=== PATIENT | female | born 1995 | race Caucasian/White ===

== ENCOUNTER 2023-06-05 08:35 | Outpatient (AMB) | payer SELFPAY ==
--- OUTSIDE RECORDS SUMMARY | 2023-06-05 08:36 | XMS_ITS | Continuity of Care Document ---
Author Name Unknown Organization [facility] Address [address] [place] [phone]- Care Team Providers Care Oyster Floater Name Role Phone Jordyn Guillory NP Primary Care Physician Encounter [facility] [place] Date(s): 06/19/21 - 07/19/21 [facility] [address] [place] [id number] Allergies, Adverse Reactions, Alerts Substance Reaction Severity Status NKA Active Medications aspirin 81 mg oral delayed release tablet 81 mg, 1, tablet, By Mouth, Daily, # 30 tablet, Refills 0, Maintenance, 07/19/21 12:52:00 EST, Partial fill upon patient request if the prescription is for a schedule II opioid drug. Start Date: 07/19/21 Status: Ordered One Touch Delica Lancets See Instructions, # 1 pack/packet, Refills 5, Tot. Refills 5, Maintenance, 1 packet = 100 lancets.33 gauge. To test BS 4 x day, 05/18/21 10:39:00 EDT, Compound Start Date: 05/18/21 Status: Ordered OneTouch Verio Glucose Meter See Instructions, # 1 pack/packet, Maintenance, Gestational diabetes to test BS 4 x day, 05/18/21 10:39:00 EDT, Compound Start Date: 05/18/21 Status: Ordered OneTouch Verio Test Strips See Instructions, # 1 pack/packet, Refills 5, Tot. Refills 5, Maintenance, To test BS 4 x day. 1 packet = 100 test strips, 05/18/21 10:39:00 EDT, Compound Start Date: 05/18/21 Status: Ordered AD oral tablet 1 tablet, By Mouth, Daily, # 30 tablet, 0 Refills, Maintenance, 07/19/21 12:51:00 EST, Tablet, Partial fill upon patient request if the prescription is for a schedule II opioid drug. Start Date: 07/19/21 Status: Ordered Problem List Condition Effective Dates Status Health Status Inform ant Gestational diabetes mellitu s, class A>1<(Confirmed) 1 07/19/21 Active Gestational hypertension(Confirmed) 2 07/19/21 Active Severe obesity(Confirmed) Active 1Problem added by Discern Expert 2Problem added by Discern Expert
--- OUTSIDE RECORDS SUMMARY | 2023-06-05 08:36 | XMS_ITS | Continuity of Care Document ---
Author Name Unknown Organization [facility] Address [address] [place] [address]- Care Team Providers Care Fish Technologist Name Role Phone Jordyn Guillory NP Primary Care Physician En[place] [facility] [place] Date(s): 02/22/22 - 03/24/22 [facility] Adult [address] [place] [address]- Allergies, Adverse Reactions, Alerts No Known Allergies Immunizations Given and Recorded Vaccine Date Status Refusal Reason influenza virus vaccine, inactivated 1 07/21/21 Gi romana 1Early/Late Reason: Early/Late Reason: Other : pt now verbally consenting to vaccination Medications acetaminophen 325 mg oral tablet 650 mg, By Mouth, Every 4 hours, PRN, (1-3), may give 325mg per patient preference and re-dose [id number] within 4 hours, if needed. Patient should only receive a total of 650mg of Acetaminophen every 4 hours., Refills 0, Maintenance, Pain , Mild, 0... Start Date: 07/22/21 Status: Ordered aspirin 81 mg oral delayed release tablet 81 mg, 1, tablet, By Mouth, Daily, # 30 tablet, Refills 0, Maintenance, 07/19/21 12:52:00 EST, Partial fill upon patient request if the prescription is for a schedule II opioid drug. Start Date: 07/19/21 Status: Ordered Docusate Sodium Capsule 100 mg, 1, capsule, By Mouth, 2 times a day, PRN, Refills 0, Maintenance, Constipation, 07/22/21 10:22:00 EST, Partial fill upon patient request if the prescription is for a schedule II opioid drug. Start Date: 07/22/21 Status: Ordered ibuprofen 800 mg oral tablet 800 mg, 1, tablet, By Mouth, Every 8 hours, PRN, (4-6), may give 400mg per patient preference and re-dose with 400mg within 8 hours if needed. Patient should only receive a total of 800mg of Ibuprofen every 8 hours., Refills 0, Maintenance, Pain , M... Start Date: 07/22/21 Status: Ordered AD oral tablet 1 tablet, By Mouth, Daily, # 30 tablet, 0 Refills, Maintenance, 07/19/21 12:51:00 EST, Tablet, Partial fill upon patient request if the prescription is for a schedule II opioid drug. Start Date: 07/19/21 Status: Ordered Problem List Condition Effective Dates Status Health Status Inform ant Severe obesity(Confirmed) Active Care Team Personnel Name: Kahlil NICHOLAS, Jordyn Steve Address: [address] [place] [address] [place] [address]-
--- OUTSIDE RECORDS SUMMARY | 2023-06-05 08:36 | XMS_ITS | Continuity of Care Document ---
Author Name Unknown Organization [facility] Address [address] [place] [address]- Care Team Providers Care Pricing Associate Name Role Phone Jordyn Guillory NP Primary Care Physician Encounter [facility] [place] Date(s): 12/13/20 - 01/12/[address] [address]- Attending Physician: AdmtrJoanna Admitting Physician: Admtr, ArJose A Referring Physician: Admtr, Ar8 Allergies, Adverse Reactions, Alerts Substance Reaction Severity Status NKA Active
--- OUTSIDE RECORDS SUMMARY | 2023-06-05 08:36 | XMS_ITS | Continuity of Care Document ---
Author Name Unknown Organization [facility] Address [address] [place] [address]- Care Team Providers Care Fiber Analyst Name Role Phone Kahlil NICHOLAS, Jordyn Steve Primary Care Physician Encounter [facility] Date(s): 07/03/21 - 08/02/21 [facility] [address] [place] [id number] Allergies, Adverse Reactions, Alerts No Known Allergies Immunizations Given and Recorded Vaccine Date Status Refusal Reason influenza virus vaccine, inactivated 1 07/21/21 Gi romana 1Early/Late Reason: Early/Late Reason: Other : pt now verbally consenting to vaccination Medications acetaminophen 325 mg oral tablet 650 mg, By Mouth, Every 4 hours, PRN, (1-3), may give 325mg per patient preference and re-dose [id number] within 4 hours, if needed. Patient should [...]
--- OUTSIDE RECORDS SUMMARY | 2023-06-05 08:36 | XMS_ITS | Continuity of Care Document ---
Author Name Unknown Organization [facility] Address [address] [place] [address]- Care Team Providers Care Engraver Copperplate Name Role Phone Kahlil NICHOLAS, Jordyn Steve Primary Care Physician En[place] [facility] [place] Date(s): 06/13/21 - 07/13/21 [facility] [address] [place] [id number] Allergies, Adverse Reactions, Alerts Substance Reaction Severity Status NKA Active Medications One Touch Delica Lancets See Instructions, # [...]
--- OUTSIDE RECORDS SUMMARY | 2023-06-05 08:36 | XMS_ITS | Continuity of Care Document ---
Author Name Unknown Organization [facility] Address [address] [place] [address]- Care Team Providers Care Bilingual Loan Processor Name Role Phone Kahlil NICHOLSA, Jordyn Steve Primary Care Physician Encounter [facility] Date(s): 11/22/20 - 12/22/[address] [address]- Allergies, Adverse Reactions, Alerts Substance Reaction Severity Status NKA Active
--- OUTSIDE RECORDS SUMMARY | 2023-06-05 08:36 | XMS_ITS | Continuity of Care Document ---
Author Name Unknown Organization [facility] Address [address] [place] [address]- Care Team Providers Care Arts Administrator Or Manager Name Role Phone Kahlil NICHOLAS, Jordyn Steve Primary Care Physician Encounter [facility] Date(s): 07/19/21 - 07/22/[address] [address] Discharge Disposition: A-D/C Home Attending Physician: Anaya Lopez DO Admitting Physician: Anaya Lopez DO Referring Physician: Not on Staff, Referring MD Allergies, Adverse Reactions, Alerts Substance Reaction Severity Status NKA Active Immunizations Given and Recorded Vaccine Date Status Refusal Reason influenza virus vaccine, inactivated 1 07/21/21 Gi romana 1Early/Late Reason: Early/Late Reason: Other : pt now verbally consenting to vaccination Medications acetaminophen 325 mg oral tablet 650 mg, By Mouth, Every 4 hours, PRN, (1-3), may give 325mg per patient preference and re-dose [id number] within 4 hours, if needed. Patient should [...] Health Status Inform ant Severe obesity(Confirmed) Active Vital Signs Most recent to oldest [Reference Range]: 1 2 3 Height 164 cm (07/22/21 8:31 AM) 164 cm (07/22/21 12:02 AM) 164 cm (07/21/21 3:58 PM) Weight 110 kg (07/19/21 12:31 PM) Oxygen Saturation [94-100 %] 99 % (07/22/21 8:31 AM) 100 % (07/22/21 12:02 AM) 97 % (07/21/21 3:58 PM) Pulse Rate [55-90 bpm] 95 bpm *H* (07/22/21 8:31 AM) 77 bpm (07/22/21 12:02 AM) 99 bpm *H* (07/21/21 3:58 PM) Body Mass Index [18.5-24.99] 40.9 *>HHI* (07/19/21 12:31 PM) Blood Pressure [90-138/55-84 mm Hg] 130/66mm Hg (07/22/21 8:31 AM) 132/77mm Hg (07/22/21 12:02 AM) 125/63mm Hg (07/21/21 3:58 PM) Respiratory Rate [16-30 br/min] 18 br/min (07/22/21 8:31 AM) 18 br/min (07/22/21 12:02 AM) 18 br/min (07/21/21 3:58 PM) Temperature [96.8-100.4 DegF] 98.4 DegF (07/22/21 8:31 AM) 98.2 DegF (07/22/21 12:02 AM) 98.9 DegF (07/21/21 3:58 PM) Mode of Delivery (Oxygen) Room air (07/22/21 8:31 AM) Room air (07/22/21 12:02 AM) Room air (07/21/21 3:58 PM) Blood pressure sites Arm, right (07/22/21 8:31 AM) Arm, right (07/21/21 3:58 PM) Arm, right (07/21/21 8:11 AM) Temperature Route Oral (07/22/21 8:31 AM) Oral (07/22/21 12:02 AM) Oral (07/21/21 3:58 PM) Dry Weight 110 kg (07/19/21 12:31 PM)
--- OUTSIDE RECORDS SUMMARY | 2023-06-05 08:36 | XMS_ITS | Continuity of Care Document ---
Author Name Unknown Organization [facility] Address [address] [place] [address]- Care Team Providers Care Seat Builder Name Role Phone Kahlil NICHOLAS, Jordyn Steve Primary Care Physician [place] [facility] [place] Date(s): 11/22/20 - 01/12/[address] [address] Attending Physician: Raphael Acosta MD Admitting Physician: Raphael Acosta MD Referring Physician: Barrington NICHOLAS, Sharon Hawkins Allergies, Adverse Reactions, Alerts Substance Reaction Severity Status NKA Active
--- OUTSIDE RECORDS SUMMARY | 2023-06-05 08:36 | XMS_ITS | Continuity of Care Document ---
Author Name Unknown Organization [facility] Address [address] [place] [address]- Care Team Providers Care Burn Center Nurse Name Role Phone Kahlil NICHOLAS, Jordyn tSeve Primary Care Physician Encounter [facility] Date(s): 06/26/21 - 07/26/21 [facility] [address] [place] [id number] Allergies, Adverse Reactions, Alerts Substance Reaction Severity Status NKA Active Immunizations Given and Recorded Vaccine Date Status Refusal Reason influenza virus vaccine, inactivated 1 07/21/21 Gi romana 1Early/Late Reason: Early/Late Reason: Other : pt now verbally consenting to vaccination Medications acetaminophen 325 mg oral tablet 650 mg, By Mouth, Every 4 hours, PRN, (1-3), may give 325mg per patient preference and re-dose [id number] within 4 hours, if needed. Patient should [...]
--- OUTSIDE RECORDS SUMMARY | 2023-06-05 08:36 | XMS_ITS | Continuity of Care Document ---
Author Name Unknown Organization [facility] Address [address] [place] [address]- Care Team Providers Care Electrical Engineering Technologist Name Role Phone Kahlil NICHOLAS, Jordyn Steve Primary Care Physician Encounter [facility] Date(s): 07/17/21 - 08/16/21 [facility] [address] [place] [id number] Allergies, Adverse Reactions, Alerts No Known Allergies Immunizations Given and Recorded Vaccine Date Status Refusal Reason influenza virus vaccine, inactivated 1 07/21/21 Gi romana 1Early/Late Reason: Early/Late Reason: Other : pt now verbally consenting to vaccination Medications acetaminophen 325 mg oral tablet 650 mg, By Mouth, Every 4 hours, PRN, (1-3), may give 325mg per patient preference and re-dose [id number] within 4 hours, if needed. Patient should [...]
--- OUTSIDE RECORDS SUMMARY | 2023-06-05 08:36 | XMS_ITS | Continuity of Care Document ---
Author Name Unknown Organization [facility] Address [address] [place] [address]- Care Team Providers Care Asbestos Hazard Abatement Worker Name Role Phone Kahlil NICHOLAS, Jordyn Steve Primary Care Physician Encounter [facility] Date(s): 05/29/21 - 06/28/21 [facility] [address] [place] [address]- Attending Physician: Admtr, Ar8 Admitting Physician: Admtr, Ar8 Referring Physician: Admtr, Ar8 Allergies, Adverse Reactions, [...]
--- OUTSIDE RECORDS SUMMARY | 2023-06-05 08:36 | XMS_ITS | Continuity of Care Document ---
Author Name Unknown Organization [facility] lt Address [address] [place] [address]- Care Team Providers Care Mail Clerk Name Role Phone Kahlil NICHOLAS, Jordyn Steve Primary Care Physician Encounter [facility] Date(s): 09/02/20 - 09/09/20 [facility] [address] [place] [address]- Attending Physician: Jennifer Pierre NP Allergies, Adverse Reactions, Alerts Substance Reaction Severity Status NKA Active
--- OUTSIDE RECORDS SUMMARY | 2023-06-05 08:37 | XMS_ITS | Continuity of Care Document ---
Author Name Unknown Organization [facility] Address [address] [place] [address]- Care Team Providers Care Mural Artist Name Role Phone Kahlil NICHOLAS, Jordyn Steve Primary Care Physician Encounter [facility] Date(s): 09/02/20 - 10/02/20 [facility] [address] [place] [address]- Attending Physician: Admtr, Ar8 Admitting Physician: Admtr, Ar8 Referring Physician: Admtr, Ar8 Allergies, Adverse Reactions, Alerts Substance Reaction Severity Status NKA Active
--- OUTSIDE RECORDS SUMMARY | 2023-06-05 08:37 | XMS_ITS | Continuity of Care Document ---
Author Name Unknown Organization [facility] Address [address] [place] [address]- Care Team Providers Care Industrial Tractor Driver Name Role Phone Jordyn Guillory NP Primary Care Physician Encounter [facility] [place] Date(s): 02/23/22 - 03/25/22 [facility] [address] [place] [address]- Allergies, Adverse Reactions, Alerts No Known Allergies Immunizations Given and Recorded Vaccine Date Status Refusal Reason influenza virus vaccine, inactivated 1 07/21/21 Gi romana 1Early/Late Reason: Early/Late Reason: Other : pt now verbally consenting to vaccination Medications acetaminophen 325 mg oral tablet 650 mg, By Mouth, Every 4 hours, PRN, (1-3), may give 325mg per patient preference and re-dose [id number] within 4 hours, if needed. Patient should [...] Severe obesity(Confirmed) Active Care Team Personnel Name: Jordyn Guillory NP Address: [address] [place] [address] [place] [address]-
--- NOTE | 2023-06-05 09:02 | AM.OFFWIN_ITS ---
Intake Vital Signs 06/05/23 09:04 Height 5 ft 5 in Weight 93.44 kg BMI 34.3 BP 122/70 Blood Pressure Location Rt brachial Position Sitting Pulse 77 Pulse Source Pulse Oximeter Pulse Oximetry (%) 97 Oxygen Delivery Method Room Air Intake Visit Reasons: Ep, sore in mouth Intake Note: Patient here for blister on roof of mouth that she noticed yesterday and woke up this morning with a swollen top lip. Patient Tobacco Use Status: Former Tobacco user Allergies No Known Allergies Allergy (Verified 06/05/23 09:05) Do you need a note to return to daycare/school/sports/work: No HPI HPI Comments 2 History of Present Illness Details [address]14 28 year old female presents w/ sore on r brown of mouth that she noticed yesterday and has had progressively worsening lip swelling upper lip for the past few days. Reports painful roof of mouth. Denies recent dental work. PE- abscess to hard palate w/ evident purulence and swollen upper lip. Concerns for abscess vs dental infection w/ cellulitis. no signs of airway compromise. Plan- patient will go to the emergency department at [facility] via private vehicle. Spoke to Mitchell MENJIVAR for report will likely need CT with contrast to rule out abscess PFS Patient Tobacco Use Status: Former Tobacco user Review of Systems Const Details: Constitutional : No Weight loss, No Fever, No Chills, No Fatigue, No Malaise ENT/Mouth : No sore throat, No Rhinorrhea Eyes: No Eye Pain, No Swelling, No Redness Cardiovascular : No Chest Pain, No SOB, No Dyspnea on Exertion, No Orthopnea, No Edema, No Palpitations Respiratory : No Cough, No Sputum, No Wheezing Gastrointestinal : No Nausea, No Vomiting, No Diarrhea, No Constipation, No abdominal Pain, No Hematochezia, No Melena Genitourinary : No Dysuria, No Urinary Frequency, No Hematuria, Musculoskeletal : No joint pain, No Myalgias, No Joint Swelling Skin : No Skin Lesions, No rash Neuro : No Weakness, No Numbness, No Dizziness, No Headache Psych : No Anxiety/Panic, No Depression All other systems reviewed and are negative All systems reviewed & are unremarkable except as noted in HPI and below Physical Exam Vital Signs: Last Vital Signs Pulse 77 06/05/23 09:04 BP 122/70 06/05/23 09:04 Pulse Ox 97 06/05/23 09:04 Oxygen Delivery Method Room Air 06/05/23 09:04 BMI result Body Mass Index 34.3 vss Appearance: Alert.? Oriented X3.? No acute distress.? Head: Normocephalic, atraumatic, no step-offs or deformities Eyes: Pupils equal, round and reactive to light.? ENT: Pharynx normal.??Uvula midline. Speaking in full sentence controlling secretions well. + abscess to hard palate w/ evident purulence and swollen upper lip. Neck: Normal inspection.? Neck supple.? CVS: Normal heart rate and rhythm.? Pulses normal.? Respiratory: No respiratory distress.? Breath sounds normal.? Abdomen: Soft and nontender.? Skin: Skin warm and dry.? Normal skin color.? Normal skin turgor.? Extremities: No lower extremity edema.? No calf ttp. 5/5 strength to bilateral upper and lower extremities Neuro: Oriented X 3.? No motor deficit.? No sensory deficit. CN 2-12 intact Assessment & Plan Assessment & Plan (1) Abscess: Code(s): L02.91 - Cutaneous abscess, unspecified Plan Take your medications as prescribed. If you were prescribed antibiotics today, it is important that you take your medication to their entirety, do not skip any doses, do not finish them early. Follow-up with your primary care provider this week. Return to the emergency department with new or worsening symptoms. Such as fevers, chills, chest pain, shortness of breath, nausea, vomiting, dizziness, headache, vision changes, lethargy In case of emergency call 911 Medications: New Magic Mouthwash Diphen/Lido/Antacid 1:1:1 Lidocaine Viscous 2 % 80mL; diphenhydramine 12.5 mg/5 mL 80mL; aluminum-mag hydrox-simeth [id number]/5mL 80mL Swish and spit do not swallow 5 mL PO TID 240 mL 0RF Coding Level of Care Code Est Pt Level 3 (87247) Diagnoses Abscess L02.91
[2023-06-05 09:04] VITALS: BP 122/70; PULSE 77; O2SAT 97; BMI 34.3
== END 2023-06-05 11:12 | disposition home or self-care (01) ==
PROVIDERS: Visit Provider Physician Assistant
DX: L02.91 Cutaneous abscess, unspecified (principal)
CPT/HCPCS: 99203; 99213

== ENCOUNTER 2023-06-05 09:50 | Emergency (ER) | payer SELFPAY ==
--- NOTE | ~2023-06-05 | CT_ITS ---
CT FACIAL BONES WITH CONTRAST CLINICAL INFORMATION: Abscess versus osteomyelitis of the hard palate. COMPARISON: None available. TECHNIQUE: A multidetector CT acquisition of the maxillofacial region is obtained following the administration of 85 mL of Omnipaque 350 intravenous contrast without complication. This CT examination was performed using dose optimization techniques as appropriate, variously including the following: *Automated exposure control *Adjustment of mA and/or kV according to patient size (this includes techniques or standardized protocols for targeted exams where dose is matched to indication/reason for exam; i.e. extremities or head) *Use of iterative reconstruction technique FINDINGS: There is significant periapical lucency involving the roots of the central maxillary incisors bilaterally that can be correlated with dental exam to exclude periapical abscesses. There is some premaxillary soft tissue swelling in this location and a possible small premaxillary abscess on image 18 of series 4 measuring 0.7 cm in size. There is a 2.5 cm AP by 0.5 cm CC by 1.5 cm TV peripherally enhancing fluid collection along the floor of the left nasal cavity just above the left hard palate most concerning for an abscess associated with significant enlargement/inflammation of the left inferior turbinate. This could be indicative of underlying osteomyelitis of the hard palate not visualized on CT from the dental source discussed above. There is rightward deviation of the nasal septum. CT/CT facial bones w IV con IMPRESSION: - There is significant periapical lucency involving the roots of the central maxillary incisors bilaterally that can be correlated with dental exam to exclude periapical abscesses. There is some premaxillary soft tissue swelling in this location and a possible small premaxillary abscess on image 18 of series 4 measuring 0.7 cm in size. - There is a 2.5 cm AP by 0.5 cm CC by 1.5 cm TV peripherally enhancing fluid collection along the floor of the left nasal cavity just above the left hard palate most concerning for an abscess associated with significant enlargement/inflammation of the left inferior turbinate. This could be indicative of underlying osteomyelitis of the hard palate not visualized on CT from the dental source discussed above.
[2023-06-05 10:07] VITALS: BP 146/72; PULSE 93; RESP 16; TEMP 36.9; O2SAT 99; BMI 40.9
[2023-06-05 10:37] LABS: MANUAL DIFF FLAG NO
[2023-06-05 10:39] LABS: Basophils Absolute Auto 0.1 X10*3/uL (0.0-0.2); Basophils Percent Auto 0.4 % (0-2); Eosinophils Percent Auto 0.1 % (0-4); Hematocrit 40.6 % (37.0-47.0); Hemoglobin 13.2 g/dl (12.0-16.0); Imm Gran Abs Auto 0.06 X10*3/uL (0.00-0.03); Imm Gran Pct Auto 0.3 % (0.0-0.4); Lymphocytes Absolute Auto 2.5 X10*3/uL (1.2-4.9); Lymphocytes Percent Auto 14.6 % (20-40); Mean Corpuscular HGB Conc 32.5 g/dl (31.0-35.0); Mean Corpuscular Hemoglobin 29.3 pg (27.0-33.0); Mean Corpuscular Volume 90.2 fL (80.0-98.0); Mean Platelet Volume 10.6 fL (9.4-12.3); Monocytes Absolute Auto 1.2 X10*3/uL (0.1-1.2); Monocytes Percent Auto 6.7 % (2-11); Neutrophils Absolute Auto 13.5 x10*3/uL (2.0-8.3); Neutrophils Percent Auto 77.9 % (45-73); Platelet Count 311 X10*3/uL (160-400); Red Cell Distribution Width 13.6 % (11.0-16.0); White Blood Count 17.4 X10*3/uL (4.8-10.8)
[2023-06-05 10:48] LABS: Lactic Acid 0.9 mmol/L (0.5-2.0)
[2023-06-05 10:51] LABS: INTERNATIONAL NORM RATIO 1.2 (0.9-1.1); Prothrombin Time 14.2 SEC (11.1-13.3)
[2023-06-05 10:59] LABS: Alanine Aminotransferase 13 U/L (0-31); Albumin Level 4.5 g/dL (3.5-5.0); Alkaline Phosphatase 78 U/L (39-117); Anion Gap 14 (12-20); Aspartate Amino Transferase 12 U/L (5-31); Bilirubin Total 0.7 mg/dL (0.0-1.0); Blood Urea Nitrogen 7 mg/dL (9-16); Calcium 9.7 mg/dL (8.4-10.2); Carbon Dioxide 21 mmol/L (22-29); Chloride 111 mmol/L (96-108); Estimated Glomerular Filt Rate > 60; Glucose Random 82 mg/dL (60-115); HCG Quantitative < 2 mIU/mL; Potassium 3.6 mmol/L (3.3-5.1); Sodium 142 mmol/L (135-145)
[2023-06-05 11:36] VITALS: BP 136/58; PULSE 75; RESP 16; TEMP 37.6; O2SAT 100
--- NOTE | 2023-06-05 11:38 | PC.NURSE ---
a&ox3, vss and up to date at this time aside from low grade temp. pt verbalizing 8/10 pain on roof of mouth. red/swollen abscess noted to roof of mouth. pt verbalizes sx began yesterday. pt states she thought abscess popped yesterday but sees to be full at this time. pt states she feels slight drainage from area. pt states difficulty swallowing. airways patent. no sob/wob noted at this time. respirations even and unlabored. upper lip swelling noted at this time. pt denies taking any medication. mother bedside for support. call garnica placed within reach.
--- NOTE | 2023-06-05 11:47 | PC.NURSE ---
20gIV placed in right AC w/o difficulty. pt awaiting to go to CT at this time.
--- NOTE | 2023-06-05 12:02 | PC.NURSE ---
this RN resumed care of pt at this time. vss and up to date. resting comfortably w/ lights dimmed in no apparent distress. pt verbalized that dizziness has subsided at this time but she has a 9/10 headache and is requesting pain medication at this time. will notify provider. respirations even and unlabored at this time. call garnica placed within reach.
--- NOTE | 2023-06-05 12:04 | ED.GENADULT ---
HPI - General Adult General Chief complaint: General Medical Stated complaint: Abscess Roof of Mouth Time Seen by Provider: 06/05/23 11:03 Source: patient and family (mom) Mode of arrival: ambulatory Limitations: no limitations History of Present Illness HPI narrative: 28 year old female with pmhx significant for eczema presents to the ED today from Urgent Care for evaluation of abscess to upper mouth x1 days. Reports upper frontal dental pain x2 days. She began to feel a bump on the roof of her mouth yesterday and reports waking up today with swelling to her upper lip. Endorses a T-max of a 100.2?F at home along with chills. Reports discomfort with eating and swallowing. Has not been taking anything for pain at home. Denies GRIMALDO, dizziness, vision changes, ear pain, jaw pain, sore throat, difficulty swallowing, difficulty controlling secretions, difficulty breathing, shortness of breath, chest pain, rash. No recent dental procedures. Related Data Previous Rx's Medication Instructions Recorded Magic Mouthwash 5 ml PO TID #240 mL 06/05/23 Diphen/Lido/Antacid 1:1:1 240 mL suspension Allergies Allergy/AdvReac Type Severity Reaction Status Date / Time No Known Allergies Allergy Verified 06/05/23 10:07 Review of Systems Review of Systems: Constitutional: No fever, chills, fatigue, night sweats, weight changes ENT/Mouth: No ear pain, hearing loss, nasal congestion, sinus pain, rhinorrhea, sore throat, +dental pain Eyes: No eye pain, swelling, redness, vision changes, discharge Cardio: No chest pain, palpitations, MCCANN, orthopnea, peripheral edema Pulm: No SOB, cough, sputum, wheezing, dyspnea, hemoptysis GI: No nausea, vomiting, hematemesis, abdominal pain, diarrhea, constipation, hematochezia, melena : No irregular bleeding, dysuria, frequency, urgency, hesitancy, hematuria, flank pain MSK: No back pain, neck pain, joint pain, myalgias Skin: No lesions, rashes Neuro: No weakness, numbness, paresthesias, LOC, dizziness, headache All other systems reviewed and are negative. [facility] Past Medical History Attestation statement: The following information was validated with the patient. Source: old records reviewed and nursing notes reviewed Social History Patient Tobacco Use Status: Former Tobacco user Smoked in Last 30 Days: No Use of substances other than those prescribed or required for medical reasons: No Advance Directives: No Patient : No Physical Exam ED Vital Signs: Vital Signs - 24 hr 06/05/23 11:36 06/05/23 14:00 06/05/23 14:48 Temperature 99.6 F 100.0 F 99.4 F Pulse Rate 75 88 93 Respiratory Rate 16 16 16 Blood Pressure 136/58 L 124/69 110/52 L Pulse Oximetry 100 94 100 Oxygen Delivery Method Room Air Room Air Room Air 06/05/23 16:11 Temperature Pulse Rate 86 Respiratory Rate 18 Blood Pressure 115/76 Pulse Oximetry 100 Oxygen Delivery Method Room Air BMI result Body Mass Index 40.9 Vital signs stable, afebrile. Const Other: + covered in multiple blankets stating that she is cold however is sweating. feels warm to touch. General: cooperative, alert, awake and ill appearing Nutritional Appearance: average body habitus Orientation/consciousness: patient oriented x3 Limitations: no limitations HENMT Other: + Refer to photos below + There is significant swelling noted to patient's upper lip. No swelling of lower lip. + Oral exam with multiple dental caries, poor dentition. There is .5 cm x .5 cm abscess noted to the anterior hard palate behind bilateral central incisors. No palpable fluctuance. on visualization, mass does not extend to the posterior aspect of the hard palate. B/l buccal mucosa normal, non TTP. + Posterior oropharynx is erythematous. No edema. No tonsilar exudates. Uvula is midline. She is controlling secretions and speaking complete sentences. + Left nare is dry with question deviated septum to the right. No visible masses. Head: Yes normal to inspection General nose exam: Normal external nose present Eyes Other: + EOMs intact bilaterally without entrapment. General: appearance normal, both eyes and all related structures Conjunctivae: conjunctivae normal Sclerae: sclerae normal Pupils: Equal, round and reactive pupils present Neck Neck: Yes normal visual inspection, Yes full ROM and Yes no lymphadenopathy Resp Effort & Inspection: normal respiratory effort, able to speak in complete sentences and no respiratory distress Auscultation: clear to auscultation bilaterally Cardio Rate: regular rate Rhythm: regular rhythm Peripheral pulses: radial pulses present, posterior tibial pulses present and dorsalis pedis present GI Inspection: Yes normal to inspection Palpation (GI): Soft to palpation and nontender Back/Spine/Pelvis Other: No midline spinous tenderness. Skin General skin exam: no rashes or lesions noted Neuro General: patient oriented x3, gait normal and moves all extremities Cranial nerves: Yes Equal, round and reactive pupils present Extrem General: Yes normal to inspection and Yes capillary refill normal Course Course Course Narrative: 1330-- CBC showing leukocytosis to 17.4. CRP 8.92. Initial lactic and repeat lactic 0.9. Concern for infection at this time. Sepsis alert initiated. Blood cultures, vanc, and zosyn ordered. > I received a call from Dr. Bartlett from [facility] regarding CT scan results. CT showing 2.5 cm x 0.5 cm x 1.5 cm fluid collection along the floor of the left nasal cavity above the left hard palate concerning for abscess. This is associated with significant enlargement/ inflammation of the left inferior turbinates. There is concern for underlying osteomyelitis of the hard palate not visualized on CT. There is also a periapical lucency involving the roots of the central maxillary incisors bilaterally concerning for periapical abscess. There are some pre maxillary soft tissue swelling in this location with possible small pre maxillary abscess measuring 0.7 cm in size. > Workup results discussed with patient. I informed her of the need for transfer to facility with the appropriate services. She expresses understanding and consents to being transferred to an acute care facility even if that means being transferred across state lines. > Calls are out to [facility], [facility], [facility] for transfer to [facility]. 1400-- [facility] declined transfer stating the only except their own patients. [facility] has also declined transfer. Patient accepted to [facility] Emergency Department. Accepting doctor is Dr. Staples. Patient's imaging will be uploaded to [facility]. She will be transferred via BLS. Medications Administered Discontinued Medications Generic Name Dose Route Start Last Admin Trade Name Freq PRN Reason Stop Dose Admin Acetaminophen 975 mg 06/05/23 12:12 06/05/23 12:28 Acetaminophen 325 Mg Tablet PO 06/05/23 12:13 975 mg ONCE ONE Administration Diphenhydramine HCl 25 mg 06/05/23 12:10 06/05/23 12:28 Diphenhydramine Hcl 50 Mg/Ml Vial IVPUSH 06/05/23 12:11 25 mg ONCE ONE Administration Sodium Chloride 1,000 mls @ 999 mls/hr 06/05/23 12:15 06/05/23 13:36 Ns IV 06/05/23 13:15 Infused .Q1H1M EDUARDA Infusion Piperacillin Sod/Tazobactam 50 mls @ 100 mls/hr 06/05/23 13:27 06/05/23 14:38 Sod 3.375 gm/ Sodium Chloride IV 06/05/23 13:56 Infused ONCE ONE Infusion Vancomycin HCl 2,000 mg in 500 mls @ 250 mls/hr 06/05/23 13:27 06/05/23 14:06 Vancomycin/Ns IV 06/05/23 15:26 250 mls/hr ONCE ONE Administration Sodium Chloride 2,847 mls @ 2,847 mls/hr 06/05/23 14:11 06/05/23 14:15 Ns 30 ml/kg infuse over 1 hr (2847 ml) 06/05/23 15:10 2,847 mls/hr IV Administration .Q1H STA Iohexol 85 ml 06/05/23 12:26 06/05/23 12:27 Iohexol 350 Mg/Ml 100 Ml Infus..Btl IV 06/05/23 12:27 85 ml ONCE ONE Administration Medical Decision Making Medical Decision Making MDM Narrative: 28 year old female with pmhx significant for eczema presents to the ED today from Urgent Care for evaluation of abscess to upper mouth. Vital signs stable, afebrile. Patient is ill-appearing, covered in multiple blankets, states she is cold however is sweating and feels warm to the touch. On exam, there is significant swelling noted to patient's upper lip. No swelling of lower lip. Oral exam shows multiple dental caries, poor dentition. There is .5 cm x .5 cm abscess noted to the anterior hard palate behind bilateral central incisors. No palpable fluctuance. On visualization, mass does not extend to the posterior aspect of the hard palate. B/l buccal mucosa normal, non TTP. Posterior oropharynx is erythematous. No edema. No tonsilar exudates. Uvula is midline. She is controlling secretions and speaking complete sentences. Left nare is dry with question deviated septum to the right. No visible masses. Clinical concern for aphthous ulcer, gingival abscess, palatal abscess, periapical abscess, osteomyelitis, dental caries, STI, hand/foot/mouth. Unlikely [employer], retropharyngeal abscess, epiglottitis, deep neck infection. Plan at this time is labs, lactic, IVF, CT facial bones with IV contrast, re-evaluation. Differential Diagnosis Differential Diagnoses: The differential diagnosis associated with the presentation includes As above. Admission/Observation Consideration of admission/observation: Escalation of care including admission/observation considered Patient with nasal floor abscess and osteomyelitis of the hard palate will be transferred to acute care facility. Consult Healthcare Provider Management of the patient was discussed with: Site Medical Director ([facility] at [facility]) Lab Data MDM Lab Attestation statement: I reviewed the patient's lab results. As above. 06/05/23 10:21 06/05/23 10:21 Labs: Lab Results 06/05/23 06/05/23 06/05/23 Range/Units 10:21 10:32 10:33 WBC 17.4 H (4.8-10.8) X10*3/uL RBC 4.50 (4.20-5.50) X10*6/uL Hgb 13.2 (12.0-16.0) g/dl Hct 40.6 (37.0-47.0) % MCV 90.2 (80.0-98.0) fL MCH 29.3 (27.0-33.0) pg MCHC 32.5 (31.0-35.0) g/dl RDW 13.6 (11.0-16.0) % Plt Count 311 (160-400) X10*3/uL MPV 10.6 (9.4-12.3) fL Immature Gran % (Auto) 0.3 (0.0-0.4) % Neut % (Auto) 77.9 H (45-73) % Lymph % (Auto) 14.6 L (20-40) % [place] % (Auto) 6.7 (2-11) % Eos % (Auto) 0.1 (0-4) % Baso % (Auto) 0.4 (0-2) % Lymph # (Auto) 2.5 (1.2-4.9) X10*3/uL [place] # (Auto) 1.2 (0.1-1.2) X10*3/uL Eos # (Auto) 0.0 (0.0-0.4) X10*3/uL Baso # (Auto) 0.1 (0.0-0.2) X10*3/uL Abs Immat Gran (auto) 0.06 H (0.00-0.03) X10*3/uL Absolute Neuts (auto) 13.5 H (2.0-8.3) x10*3/uL Absolute Nucleated RBC 0.000 (0.0-0.012) X10*3/uL Nucleated RBC % (auto) 0.0 (0.0-0.2) /100WBC ESR Cancelled PT 14.2 H (11.1-13.3) SEC INR 1.2 H (0.9-1.1) Sodium 142 (135-145) mmol/L Potassium 3.6 (3.3-5.1) mmol/L Chloride 111 H (96-108) mmol/L Carbon Dioxide 21 L (22-29) mmol/L Anion Gap 14 (12-20) BUN 7 L (9-16) mg/dL Creatinine 0.72 (0.5-1.4) mg/dL Estim Creat Clear Calc 122.0 Estimated GFR > 60 Random Glucose 82 (60-115) mg/dL Lactic Acid 0.9 (0.5-2.0) mmol/L Calcium 9.7 (8.4-10.2) mg/dL Total Bilirubin 0.7 (0.0-1.0) mg/dL AST 12 (5-31) U/L ALT 13 (0-31) U/L Alkaline Phosphatase 78 (39-117) U/L C-Reactive Protein 8.92 H (< or = 0.50) mg/dL Total Protein 8.0 (6.5-8.0) g/dL Albumin 4.5 (3.5-5.0) g/dL Beta HCG, Quant < 2 mIU/mL Urine Color Urine Appearance Urine pH (5.0-9.0) Ur Specific [place] (1.005-1.025) Urine Protein (Neg-Trace) mg/dL Urine Glucose (UA) (Negative) mg/dL Urine Ketones (Negative) mg/dL Urine Blood (Negative) Urine Nitrite (Negative) Ur Leukocyte Esterase (Negative) Blood Type A Positive Antibody Screen NEGATIVE 06/05/23 06/05/23 Range/Units 13:08 13:24 WBC (4.8-10.8) X10*3/uL RBC (4.20-5.50) X10*6/uL Hgb (12.0-16.0) g/dl Hct (37.0-47.0) % MCV (80.0-98.0) fL MCH (27.0-33.0) pg MCHC (31.0-35.0) g/dl RDW (11.0-16.0) % Plt Count (160-400) X10*3/uL MPV (9.4-12.3) fL Immature Gran % (Auto) (0.0-0.4) % Neut % (Auto) (45-73) % Lymph % (Auto) (20-40) % [place] % (Auto) (2-11) % Eos % (Auto) (0-4) % Baso % (Auto) (0-2) % Lymph # (Auto) (1.2-4.9) X10*3/uL [place] # (Auto) (0.1-1.2) X10*3/uL Eos # (Auto) (0.0-0.4) X10*3/uL Baso # (Auto) (0.0-0.2) X10*3/uL Abs Immat Gran (auto) (0.00-0.03) X10*3/uL Absolute Neuts (auto) (2.0-8.3) x10*3/uL Absolute Nucleated RBC (0.0-0.012) X10*3/uL Nucleated RBC % (auto) (0.0-0.2) /100WBC ESR 15 PT (11.1-13.3) SEC INR (0.9-1.1) Sodium (135-145) mmol/L Potassium (3.3-5.1) mmol/L Chloride (96-108) mmol/L Carbon Dioxide (22-29) mmol/L Anion Gap (12-20) BUN (9-16) mg/dL Creatinine (0.5-1.4) mg/dL Estim Creat Clear Calc Estimated GFR Random Glucose (60-115) mg/dL Lactic Acid 0.9 (0.5-2.0) mmol/L Calcium (8.4-10.2) mg/dL Total Bilirubin (0.0-1.0) mg/dL AST (5-31) U/L ALT (0-31) U/L Alkaline Phosphatase (39-117) U/L C-Reactive Protein (< or = 0.50) mg/dL Total Protein (6.5-8.0) g/dL Albumin (3.5-5.0) g/dL Beta HCG, Quant mIU/mL Urine Color Yellow Urine Appearance Clear Urine pH 5.5 (5.0-9.0) Ur Specific [place] >= 1.030 H (1.005-1.025) Urine Protein Negative (Neg-Trace) mg/dL Urine Glucose (UA) Negative (Negative) mg/dL Urine Ketones Negative (Negative) mg/dL Urine Blood Negative (Negative) Urine Nitrite Negative (Negative) Ur Leukocyte Esterase Negative (Negative) Blood Type Antibody Screen Independent Interpretation I performed an independent interpretation of an: CT Scan Interpretation: CT facial bones with free air suggestive of osteomyelitis, agree with radiologist's interpretation. Radiology Impression Discussion of test interpretation with radiology: I have reviewed the radiologist's reading. Radiologist Impression: CT facial bones w IV con IMPRESSION: - There is significant periapical lucency involving the roots of the central maxillary incisors bilaterally that can be correlated with dental exam to exclude periapical abscesses. There is some premaxillary soft tissue swelling in this location and a possible small premaxillary abscess on image 18 of series 4 measuring 0.7 cm in size. - There is a 2.5 cm AP by 0.5 cm CC by 1.5 cm TV peripherally enhancing fluid collection along the floor of the left nasal cavity just above the left hard palate most concerning for an abscess associated with significant enlargement/inflammation of the left inferior turbinate. This could be indicative of underlying osteomyelitis of the hard palate not visualized on CT from the dental source discussed above. Independent Historian Clinical information obtained from an independent historian. History obtained from or confirmed by: Parent (mom) External Record Review External record reviewed: Inpatient record, Office record, Outpatient record, Prior outpatient labs, Prior outpatient radiology, Primary care record and Outside ED record Prescription Management I considered prescription management with: Pain Medication and Antibiotic Critical Care Time Critical Care Time Critical Care Time: Yes Total Critical Care Time: 120 Attestation: Critical care time in the amount of 120 minutes has been provided to the patient in terms of direct patient care, frequent reevaluation, consultation with transfer centers at [facility], review and interpretation of medical data and results, and management of potentially life-threatening conditions. This is all outside of any medical procedures. Discharge Plan Discharge Clinical Impression: Abscess of nasal cavity, Osteomyelitis Patient Disposition: Xfer [facility] Transfer Details: Patient to be transferred to [facility] ED with accepting doctor, Dr. Staples Prescriptions: No Action Magic Mouthwash Diphen/Lido/Antacid 1:1:1 240 mL suspension 5 ml PO TID Qty: 240 0RF Rx Instructions: Lidocaine Viscous 2 % 80mL; diphenhydramine 12.5 mg/5 mL 80mL; aluminum-mag hydrox-simeth [id number]/5mL 80mL Swish and spit do not swallow Interventions: Acute Care Transfer Worksheet (ED) Last Done: 06/05/23 16:16 Discharge Date/Time: 06/05/23 16:18
--- NOTE | 2023-06-05 12:10 | PC.NURSE ---
pt to CT at this time.
[2023-06-05] MEDS: 0.9 % Sodium Chloride 1,000 ML 999 ML IV (12:26)
[2023-06-05] MEDS: iohexoL 350 MG/ML 100 ML INFUS..BTL 85 ML IV (12:27)
[2023-06-05] MEDS: diphenhydrAMINE HCL 50 MG/ML VIAL 25 MG IVPUSH (12:28)
[2023-06-05] MEDS: Acetaminophen 325 MG TABLET 975 MG PO (12:28)
--- NOTE | 2023-06-05 12:33 | PC.NURSE ---
medication administered per provider order. pt awaiting CT results at this time.
[2023-06-05 12:46] LABS: C Reactive Protein 8.92 mg/dL (< or = 0.50)
--- NOTE | 2023-06-05 13:08 | PC.NURSE ---
labs obtained and sent by [facility] at this time.
--- NOTE | 2023-06-05 13:16 | PC.NURSE ---
urine being obtained and sent to lab by [facility].
[2023-06-05 13:21] LABS: Lactic Acid 0.9 mmol/L (0.5-2.0)
[2023-06-05 13:31] LABS: Appearance Urine Clear; Color Urine Yellow; Glucose Urine UA Negative (Negative); Leukocyte Esterase Urine Negative (Negative); Nitrite Urine Negative (Negative); PH 5.5 (5.0-9.0); Specific Gravity - Urine >= 1.030 (1.005-1.025); Urine Blood Negative (Negative); Urine Ketones Negative (Negative); Urine Protein Negative (Neg-Trace)
[2023-06-05 13:50] LABS: Erythrocyte Sedimentation Rate 15 MM/HR (0-20)
[2023-06-05 14:00] VITALS: BP 124/69; PULSE 88; RESP 16; TEMP 37.8; O2SAT 94
[2023-06-05] MEDS: Piperacillin Sodium/Tazobactam 3.375 GM in 0.9 % Sodium Chloride 50 ML IV (14:06)
[2023-06-05] MEDS: vancomycin/NS 2,000 MG/500 ML PLAST..BAG 250 MG IV (14:06)
--- NOTE | 2023-06-05 14:32 | PC.NURSE ---
sepsis protocol initiated. slight delay in abx administration d/t pt being hard stick/being able to obtain cultures. 22gIV placed in left hand to promote further IV access for fluids. fluids administered per protocol. pt still febrile at this time despite tylenol administration. pt verbalizing pain level decreased to 3/10 at this time. pt aware of plan at this time. pt awaiting transport to [facility] at this time. mother bedside for support. call [facility] placed within reach.
[2023-06-05 14:48] VITALS: BP 110/52; PULSE 93; RESP 16; TEMP 37.4; O2SAT 100
--- NOTE | 2023-06-05 15:37 | PC.NURSE ---
this rn assumed care of pt. pt a&ox4, respirations even and unlabored. pt denies pain at this time. pt resting in stretcher, no acute distress.
--- NOTE | 2023-06-05 16:07 | PC.NURSE ---
fluids and vanco needed to be stopped per provider verbal order in order for pt to be transported to [facility].
[2023-06-05 16:11] VITALS: BP 115/76; PULSE 86; RESP 18; O2SAT 100
--- NOTE | 2023-06-05 16:14 | PC.NURSE ---
Addendum entered by Dianne Magallon 06/05/23 16:15: [facility] nurse aware of pt being disconnected from fluids and vanco at this time for transport. Original Note: report given to [facility] triage nurse.
== END 2023-06-05 16:18 | disposition short-term general hospital (02) ==
PROVIDERS: Physician Assistant; Physician Assistant Medical; Emergency Provider Emergency Medicine
DX: K12.2 Cellulitis and abscess of mouth (principal); J32.9 Chronic sinusitis, unspecified; K08.89 Other specified disorders of teeth and supporting structures; M86.9 Osteomyelitis, unspecified; M86.8X8 Other osteomyelitis, other site; R50.9 Fever, unspecified; D72.829 Elevated white blood cell count, unspecified; R93.89 Abnormal findings on diagnostic imaging of other specified body structures
CPT/HCPCS: 36415; 70487; 80053; 81003; 83605; 84702; 85025; 85610; 85652; 86140; 86850; 86900; 86901; 87040; 87147; 87205; 96361; 96365; 96375; 99285; J1200; J2543; J3370; Q9967